=== PATIENT | female | born 1960 | race Caucasian/White ===

== ENCOUNTER 2024-08-14 06:19 | Day surgery (SDC) | payer OTHER, SELFPAY ==
[2024-08-14 09:24] VITALS: BMI 23.0
[2024-08-14 09:26] VITALS: BP 136/78
[2024-08-14 11:26] VITALS: BP 79/56
[2024-08-14 11:28] VITALS: BP 82/57
[2024-08-14 11:30] VITALS: BP 88/56
[2024-08-14 11:40] VITALS: BP 92/66
[2024-08-14 11:45] VITALS: BP 98/61
== END 2024-08-14 11:50 | disposition home or self-care (01) ==
LOC: GI 06:19
PROVIDERS: ATTENDING PHYSICIAN Internal Medicine Gastroenterology
DX: K83.8 Other specified diseases of biliary tract (principal)
CPT/HCPCS: 43237; 43239; 88305